=== PATIENT | female | born 1940 | race Caucasian/White ===

== ENCOUNTER → 2016-10-08 | Outpatient (CLI) | payer OTHER ==
[2016-10-08 08:22] LABS: Urine Bilirubin Negative (Negative); Urine Blood TRACE /uL (Negative); Urine Color Yellow (Yellow); Urine Glucose Normal (Normal); Urine Ketone Negative (Negative); Urine Nitrite Negative (Negative); Urine RBC 1 /hpf (0 - 4); Urine Squamous Epithelial Cell FEW /hpf (<5); Urine Urobilinogen Normal (Negative); Urine pH 6.5 (5.0-8.0)
[2016-10-08 08:43] LABS: Basophils # (auto) 0 uL; Basophils % (auto) 0.4 % (0.0-2.0); Eosinophils # (auto) 0.2 uL; Eosinophils % (auto) 3.4 % (0.0-7.0); Hematocrit 44.8 % (36.0-46.0); Hemoglobin 15.4 g/dL (12.2-16.2); Lymphocytes # (auto) 1.4 uL; Lymphocytes % (auto) 28.2 % (10.0-50.0); Mean Corpuscular Hemoglobin 31.5 pg (28.0-32.0); Mean Corpuscular Hgb Conc. 34.3 g/dL (32.0-36.0); Mean Platelet Volume 10.2 fL (7.4-10.4); Monocytes # (auto) 0.6 uL; Monocytes % (auto) 12.6 % (0.0-12.0); Neutrophils # (auto) 2.7 uL; Neutrophils % (auto) 55.4 % (37.0-80.0); Platelet Count (auto) 190 10^3/uL (140-450); Red Cell Distribution Width 13.9 % (11.6-16.0)
[2016-10-08 14:03] LABS: BUN/Creatinine Ratio 15.3; Bilirubin, Total 1.5 mg/dL (0.2-1.0); Calcium 8.7 mg/dL (8.5-10.1); Total Protein 7.2 g/dL (6.4-8.2); Uric Acid 3.1 mg/dL (2.6-6.0)
== END | disposition home or self-care (01) ==
LOC: LAB 06:41
PROVIDERS: ATTEND Family Medicine
DX: E11.8 Type 2 diabetes mellitus with unspecified complications (principal); E78.5 Hyperlipidemia, unspecified; M19.90 Unspecified osteoarthritis, unspecified site
CPT/HCPCS: 36415; 80053; 80061; 81001; 84550; 85025

== ENCOUNTER → 2017-02-08 | Outpatient (CLI) | payer OTHER ==
[2017-02-08 08:33] LABS: Albumin 3.5 g/dL (3.4-5.0); Bilirubin, Direct 0.2 mg/dL (0-0.2); Bilirubin, Total 1.2 mg/dL (0.2-1.0); Total Protein 6.7 g/dL (6.4-8.2)
[2017-02-08 09:11] LABS: Hepatitis B Surface Antibody Negative
== END | disposition home or self-care (01) ==
LOC: LAB 06:47
PROVIDERS: ATTEND Family Medicine
DX: E78.5 Hyperlipidemia, unspecified (principal); M19.049 Primary osteoarthritis, unspecified hand
CPT/HCPCS: 36415; 80076; 86704; 86706; 86708; 86803; 87340

== ENCOUNTER → 2018-03-10 | Outpatient (CLI) | payer OTHER, MEDICARE ==
[2018-03-10 07:45] LABS: Urine Blood Negative /uL (Negative); Urine Specific Gravity 1.013 (1.001-1.035)
[2018-03-10 07:46] LABS: Basophils # (auto) 0 uL; Basophils % (auto) 0.8 % (0.0-2.0); Eosinophils # (auto) 0.1 uL; Eosinophils % (auto) 2.8 % (0.0-7.0); Hematocrit 43.7 % (36.0-46.0); Hemoglobin 14.9 g/dL (12.2-16.2); Lymphocytes % (auto) 25.8 % (10.0-50.0); Mean Corpuscular Hemoglobin 31.8 pg (28.0-32.0); Mean Corpuscular Hgb Conc. 34.2 g/dL (32.0-36.0); Mean Corpuscular Volume 93.1 fL (80.0-100.0); Monocytes # (auto) 0.5 uL; Monocytes % (auto) 13.4 % (0.0-12.0); Neutrophils # (auto) 2.2 uL; Neutrophils % (auto) 57.2 % (37.0-80.0); Platelet Count (auto) 157 10^3/uL (140-450); Red Cell Distribution Width 14.1 % (11.8-14.3); White Blood Cell 3.9 10^3/uL (4.4-10.8)
[2018-03-10 08:20] LABS: Albumin 3.6 g/dL (3.4-5.0); BUN/Creatinine Ratio 20.5; Bilirubin, Total 1.5 mg/dL (0.2-1.0); Calcium 8.3 mg/dL (8.5-10.1); Potassium 3.7 mmol/L (3.5-5.1); Total Protein 6.8 g/dL (6.4-8.2)
[2018-03-10 08:41] LABS: INR 1.12 (0.9-1.15); Partial Thromboplastin Time 36.2 sec (23.78-33.04); Prothrombin Time 11.9 sec (9.27-12.13)
== END | disposition home or self-care (01) ==
LOC: LAB 06:45
PROVIDERS: ATTEND Specialist
DX: Z01.812 Encounter for preprocedural laboratory examination (principal); D68.311 Acquired hemophilia; H25.11 Age-related nuclear cataract, right eye; Z79.01 Long term (current) use of anticoagulants
CPT/HCPCS: 36415; 80053; 81003; 85025; 85610; 85730

== ENCOUNTER → 2018-04-26 | Outpatient (CLI) | payer OTHER, MEDICARE ==
[2018-04-26 12:41] LABS: Basophils # (auto) 0 uL; Basophils % (auto) 0.6 % (0.0-2.0); Eosinophils # (auto) 0.1 uL; Eosinophils % (auto) 2.1 % (0.0-7.0); Hematocrit 46.3 % (36.0-46.0); Hemoglobin 15.6 g/dL (12.2-16.2); Lymphocytes # (auto) 1.1 uL; Lymphocytes % (auto) 28.2 % (10.0-50.0); Mean Corpuscular Hemoglobin 31.5 pg (28.0-32.0); Mean Corpuscular Hgb Conc. 33.7 g/dL (32.0-36.0); Mean Corpuscular Volume 93.6 fL (80.0-100.0); Monocytes # (auto) 0.6 uL; Monocytes % (auto) 13.9 % (0.0-12.0); Neutrophils # (auto) 2.2 uL; Neutrophils % (auto) 55.2 % (37.0-80.0); Nucleated Red Blood Cells % 0.1 %; Platelet Count (auto) 170 10^3/uL (140-450); Red Blood Cells 4.95 10^6/uL (4.0-5.20); Red Cell Distribution Width 13.7 % (11.8-14.3)
[2018-04-26 12:42] LABS: Urine Blood Negative /uL (Negative); Urine Specific Gravity 1.021 (1.001-1.035)
[2018-04-26 12:57] LABS: INR 1.1 (0.9-1.15); Partial Thromboplastin Time 35.6 sec (23.78-33.04); Prothrombin Time 11.7 sec (9.27-12.13)
[2018-04-26 13:18] LABS: Albumin 3.8 g/dL (3.4-5.0); BUN/Creatinine Ratio 15.1; Bilirubin, Total 2.2 mg/dL (0.2-1.0); Potassium 3.8 mmol/L (3.5-5.1); Total Protein 7.4 g/dL (6.4-8.2)
== END | disposition home or self-care (01) ==
LOC: LAB 11:49
DX: Z01.812 Encounter for preprocedural laboratory examination (principal); H25.12 Age-related nuclear cataract, left eye; D68.9 Coagulation defect, unspecified; Z79.01 Long term (current) use of anticoagulants
CPT/HCPCS: 36415; 80053; 81003; 85025; 85610; 85730

== ENCOUNTER → 2018-10-03 | Outpatient (CLI) | payer OTHER, MEDICARE ==
[2018-10-03 09:50] LABS: Basophils # (auto) 0 uL; Basophils % (auto) 0.7 % (0.0-2.0); Eosinophils # (auto) 0.2 uL; Eosinophils % (auto) 3.6 % (0.0-7.0); Hematocrit 46.6 % (36.0-46.0); Hemoglobin 15.4 g/dL (12.2-16.2); Lymphocytes # (auto) 1.4 uL; Lymphocytes % (auto) 33.1 % (10.0-50.0); Mean Corpuscular Hgb Conc. 33.1 g/dL (32.0-36.0); Mean Corpuscular Volume 93.6 fL (80.0-100.0); Monocytes # (auto) 0.5 uL; Monocytes % (auto) 12.3 % (0.0-12.0); Neutrophils # (auto) 2.2 uL; Neutrophils % (auto) 50.3 % (37.0-80.0); Nucleated Red Blood Cells % 0.1 %; Platelet Count (auto) 166 10^3/uL (140-450); Red Blood Cells 4.98 10^6/uL (4.0-5.20); Red Cell Distribution Width 13.7 % (11.8-14.3); White Blood Cell 4.4 10^3/uL (4.4-10.8)
[2018-10-03 10:02] LABS: Urine Bacteria FEW /hpf (None Seen); Urine Blood Negative /uL (Negative); Urine Specific Gravity 1.011 (1.001-1.035); Urine WBC 3 /hpf (0 - 5)
[2018-10-03 11:18] LABS: Potassium 4.3 mmol/L (3.5-5.1)
[2018-10-03 11:49] LABS: Albumin 3.8 g/dL (3.4-5.0); BUN/Creatinine Ratio 21.8; Bilirubin, Total 0.9 mg/dL (0.2-1.0); Calcium 9.4 mg/dL (8.5-10.1); Total Protein 7.1 g/dL (6.4-8.2)
== END | disposition home or self-care (01) ==
LOC: LAB 08:10
PROVIDERS: ATTEND Nurse Practitioner
DX: E78.5 Hyperlipidemia, unspecified (principal)
CPT/HCPCS: 36415; 80053; 80061; 81001; 82306; 84443; 85025

== ENCOUNTER → 2018-11-02 | Outpatient (CLI) | payer MEDICARE, OTHER | END | disposition home or self-care (01) | LOC: XYW 08:50 | PROVIDERS: ATTEND Internal Medicine | DX: I08.1 Rheumatic disorders of both mitral and tricuspid valves (principal); I48.1 Persistent atrial fibrillation; E78.5 Hyperlipidemia, unspecified | CPT/HCPCS: 93306 ==

== ENCOUNTER → 2019-02-03 | Outpatient (CLI) | payer OTHER ==
[2019-02-03 09:50] LABS: Calcium 8.9 mg/dL (8.5-10.1); Potassium 3.9 mmol/L (3.5-5.1)
[2019-02-03 11:56] LABS: Free T4 (Free Thyroxine) 1.35 ng/dL (0.89-1.76)
[2019-02-03 11:57] LABS: Folate (Folic Acid) 18.17 ng/mL (5.38-24)
== END | disposition home or self-care (01) ==
LOC: LAB 07:50
PROVIDERS: ATTEND Internal Medicine
DX: I10 Essential (primary) hypertension (principal)
CPT/HCPCS: 36415; 80048; 82607; 82746; 84439; 84443

== ENCOUNTER → 2019-04-18 | Outpatient (CLI) | payer OTHER ==
[2019-04-18 11:15] LABS: Basophils # (auto) 0 uL; Basophils % (auto) 0.8 % (0.0-2.0); Eosinophils # (auto) 0.1 uL; Eosinophils % (auto) 1.9 % (0.0-7.0); Hematocrit 47.2 % (36.0-46.0); Hemoglobin 15.9 g/dL (12.2-16.2); Lymphocytes # (auto) 1.1 uL; Lymphocytes % (auto) 28.5 % (10.0-50.0); Mean Corpuscular Hemoglobin 31.5 pg (28.0-32.0); Mean Corpuscular Hgb Conc. 33.7 g/dL (32.0-36.0); Mean Corpuscular Volume 93.3 fL (80.0-100.0); Monocytes # (auto) 0.5 uL; Monocytes % (auto) 12.3 % (0.0-12.0); Neutrophils # (auto) 2.2 uL; Neutrophils % (auto) 56.5 % (37.0-80.0); Nucleated Red Blood Cells % 0.5 %; Platelet Count (auto) 161 10^3/uL (140-450); Red Blood Cells 5.06 10^6/uL (4.0-5.20); White Blood Cell 3.9 10^3/uL (4.4-10.8)
[2019-04-18 11:22] LABS: Urine Bacteria FEW /hpf (None Seen); Urine Blood TRACE /uL (Negative); Urine Specific Gravity 1.016 (1.001-1.035); Urine WBC 56 /hpf (0 - 5)
[2019-04-18 11:47] LABS: Calcium 9.1 mg/dL (8.5-10.1); Potassium 3.9 mmol/L (3.5-5.1)
[2019-04-18 11:51] LABS: BUN/Creatinine Ratio 23.8; Bilirubin, Total 1.7 mg/dL (0.2-1.0); Total Protein 7.4 g/dL (6.4-8.2)
== END | disposition home or self-care (01) ==
LOC: LAB 10:42
PROVIDERS: ATTEND Nurse Practitioner
DX: E78.5 Hyperlipidemia, unspecified (principal); I10 Essential (primary) hypertension
CPT/HCPCS: 36415; 80053; 80061; 81001; 85025

== ENCOUNTER → 2020-08-09 | Outpatient (CLI) | payer OTHER | END | disposition home or self-care (01) | LOC: LAB 08:34 | PROVIDERS: ATTEND Nurse Practitioner Family | DX: Z20.828 Contact with and (suspected) exposure to other viral communicable diseases (principal) | CPT/HCPCS: C9803; U0003 ==

== ENCOUNTER → 2020-11-22 | Outpatient (CLI) | payer OTHER ==
[2020-11-22 08:37] LABS: Urine Bacteria MANY /hpf (None Seen); Urine Blood Negative /uL (Negative); Urine WBC 63 /hpf (0 - 5)
[2020-11-22 08:48] LABS: Basophils # (auto) 0 10 ^3/uL (0-0.2); Basophils % (auto) 0.6 % (0.0-2.0); Eosinophils # (auto) 0.1 10 ^3/uL (0-0.8); Hematocrit 46.6 % (36.0-46.0); Lymphocytes # (auto) 1.2 10 ^3/uL (0.4-5.4); Lymphocytes % (auto) 28.6 % (10.0-50.0); Mean Corpuscular Hemoglobin 32.2 pg (28.0-32.0); Mean Corpuscular Hgb Conc. 34.3 g/dL (32.0-36.0); Monocytes # (auto) 0.4 10 ^3/uL (0-1.3); Monocytes % (auto) 10.3 % (0.0-12.0); Neutrophils # (auto) 2.5 10 ^3/uL (1.6-8.6); Neutrophils % (auto) 58.5 % (37.0-80.0); Nucleated Red Blood Cells % 0.3 %; Platelet Count (auto) 181 10^3/uL (140-450); Red Blood Cells 4.96 10^6/uL (4.0-5.20); Red Cell Distribution Width 14.1 % (11.8-14.3); White Blood Cell 4.2 10^3/uL (4.4-10.8)
[2020-11-22 09:02] LABS: Albumin 3.9 g/dL (3.4-5.0); Calcium 9.1 mg/dL (8.5-10.1)
[2020-11-22 09:07] LABS: BUN/Creatinine Ratio 15.4; Bilirubin, Total 1.6 mg/dL (0.2-1.0)
== END | disposition home or self-care (01) ==
LOC: LAB 07:34
PROVIDERS: ATTEND Nurse Practitioner
DX: I10 Essential (primary) hypertension (principal); E78.5 Hyperlipidemia, unspecified
CPT/HCPCS: 36415; 80053; 80061; 81001; 84443; 85025; 86431

== ENCOUNTER → 2021-02-05 | Outpatient (CLI) | payer OTHER ==
[2021-02-05 08:20] LABS: Cholesterol 198 mg/dL (< 200)
[2021-02-05 08:23] LABS: HDL Cholesterol 52 mg/dL (40-59); LDL Cholesterol 130 mg/dL (< 100); Triglycerides 117 mg/dL (< 150)
== END | disposition home or self-care (01) ==
LOC: LAB 07:28
PROVIDERS: ATTEND Internal Medicine
DX: E78.5 Hyperlipidemia, unspecified (principal)
CPT/HCPCS: 36415; 80061

== ENCOUNTER → 2021-02-12 | Outpatient (CLI) | payer OTHER | END | disposition home or self-care (01) | LOC: XYW 02-11 11:37 | PROVIDERS: ATTEND Internal Medicine | DX: I08.3 Combined rheumatic disorders of mitral, aortic and tricuspid valves (principal); I11.9 Hypertensive heart disease without heart failure; I48.91 Unspecified atrial fibrillation | CPT/HCPCS: 93306 ==

== ENCOUNTER → 2021-02-25 | Outpatient (CLI) | payer OTHER ==
[~2021-02-25] VITALS: Ht 162.6 cm; Wt 50.3 kg
[~2021-02-25] MED LIST: ADENOSINE 42 MG in GIVE UN-DILUTED 0 ML IV ONE
[2021-02-25 09:46] VITALS: BP 196/81
== END | disposition home or self-care (01) ==
LOC: XY 08:17
PROVIDERS: ATTEND Internal Medicine
DX: I25.10 Atherosclerotic heart disease of native coronary artery without angina pectoris (principal)
CPT/HCPCS: 78452; 93017; A9500; J0153

== ENCOUNTER → 2021-03-05 | Outpatient (CLI) | payer OTHER ==
[2021-03-05 07:11] LABS: Basophils # (auto) 0 10 ^3/uL (0-0.2); Eosinophils # (auto) 0.1 10 ^3/uL (0-0.8); Eosinophils % (auto) 1.8 % (0.0-7.0); Hematocrit 42.7 % (36.0-46.0); Hemoglobin 14.8 g/dL (12.2-16.2); Lymphocytes # (auto) 1.1 10 ^3/uL (0.4-5.4); Lymphocytes % (auto) 26.9 % (10.0-50.0); Mean Corpuscular Hemoglobin 32.1 pg (28.0-32.0); Mean Corpuscular Hgb Conc. 34.7 g/dL (32.0-36.0); Mean Corpuscular Volume 92.5 fL (80.0-100.0); Monocytes # (auto) 0.5 10 ^3/uL (0-1.3); Monocytes % (auto) 12.5 % (0.0-12.0); Neutrophils # (auto) 2.4 10 ^3/uL (1.6-8.6); Neutrophils % (auto) 57.8 % (37.0-80.0); Red Blood Cells 4.62 10^6/uL (4.0-5.20); Red Cell Distribution Width 13.2 % (11.8-14.3); White Blood Cell 4.2 10^3/uL (4.4-10.8)
[2021-03-05 07:17] LABS: Urine Bacteria MOD /hpf (None Seen); Urine Blood Negative /uL (Negative); Urine Specific Gravity 1.015 (1.001-1.035); Urine WBC 18 /hpf (0 - 5)
[2021-03-05 07:35] LABS: Albumin 3.7 g/dL (3.4-5.0); BUN/Creatinine Ratio 17.5; Calcium 9.1 mg/dL (8.5-10.1); Potassium 4.9 mmol/L (3.5-5.1)
[2021-03-05 07:39] LABS: Bilirubin, Total 1.2 mg/dL (0.2-1.0); Total Protein 7.1 g/dL (6.4-8.2)
== END | disposition home or self-care (01) ==
LOC: LAB 06:39
PROVIDERS: ATTEND Nurse Practitioner
DX: I10 Essential (primary) hypertension (principal); E03.9 Hypothyroidism, unspecified; E78.5 Hyperlipidemia, unspecified
CPT/HCPCS: 36415; 80053; 80061; 81001; 84443; 85025

== ENCOUNTER 2021-03-21 14:54 | Emergency (ER) | payer OTHER ==
[~2021-03-21] VITALS: Ht 157.5 cm; Wt 50.3 kg
[2021-03-21 16:15] LABS: Basophils # (auto) 0.1 10 ^3/uL (0-0.2); Basophils % (auto) 1.3 % (0.0-2.0); Eosinophils # (auto) 0.1 10 ^3/uL (0-0.8); Eosinophils % (auto) 1.1 % (0.0-7.0); Hemoglobin 14.9 g/dL (12.2-16.2); Lymphocytes # (auto) 1.1 10 ^3/uL (0.4-5.4); Lymphocytes % (auto) 21.8 % (10.0-50.0); Mean Corpuscular Hemoglobin 31.5 pg (28.0-32.0); Mean Corpuscular Hgb Conc. 34.6 g/dL (32.0-36.0); Mean Corpuscular Volume 91.2 fL (80.0-100.0); Monocytes # (auto) 0.6 10 ^3/uL (0-1.3); Monocytes % (auto) 12.5 % (0.0-12.0); Neutrophils # (auto) 3.3 10 ^3/uL (1.6-8.6); Neutrophils % (auto) 63.3 % (37.0-80.0); Red Blood Cells 4.72 10^6/uL (4.0-5.20); Red Cell Distribution Width 13.3 % (11.8-14.3); White Blood Cell 5.2 10^3/uL (4.4-10.8)
[2021-03-21 16:31] LABS: Albumin 3.7 g/dL (3.4-5.0); Anion Gap 6 (5-15); Blood Urea Nitrogen 12 mg/dL (7-18); Carbon Dioxide 29 mmol/L (21-32); Chloride 99 mmol/L (98-107); Glucose 88 mg/dL (74-106); Magnesium 2.3 mg/dL (1.6-2.6); Potassium 3.7 mmol/L (3.5-5.1); Sodium 134 mmol/L (136-145)
[2021-03-21 16:38] LABS: Alanine Aminotransferase 34 U/L (13-56); Alkaline Phosphatase 69 U/L (45-117); Aspartate Aminotransferase 28 U/L (15-37); BUN/Creatinine Ratio 17.6; Bilirubin, Total 1.9 mg/dL (0.2-1.0); GFR African American 107 mL/min; GFR Non-African American 88 mL/min
[2021-03-21 17:39] VITALS: BP 150/56
== END 2021-03-21 17:40 | disposition home or self-care (01) ==
LOC: ER 14:54
DX: I16.0 Hypertensive urgency (principal); R51.9 Headache, unspecified; I48.91 Unspecified atrial fibrillation; I25.10 Atherosclerotic heart disease of native coronary artery without angina pectoris; E78.5 Hyperlipidemia, unspecified; I10 Essential (primary) hypertension; Z95.1 Presence of aortocoronary bypass graft; Z90.710 Acquired absence of both cervix and uterus; Z98.890 Other specified postprocedural states
CPT/HCPCS: 36415; 70450; 71046; 80053; 83735; 84484; 85025; 93005

== ENCOUNTER → 2021-10-27 | Outpatient (CLI) | payer OTHER ==
[2021-10-27 11:12] LABS: Basophils # (auto) 0 10 ^3/uL (0-0.2); Basophils % (auto) 1.1 % (0.0-2.0); Eosinophils # (auto) 0.1 10 ^3/uL (0-0.8); Eosinophils % (auto) 2.5 % (0.0-7.0); Hematocrit 41.3 % (36.0-46.0); Hemoglobin 14.2 g/dL (12.2-16.2); Lymphocytes # (auto) 1.2 10 ^3/uL (0.4-5.4); Lymphocytes % (auto) 26.4 % (10.0-50.0); Mean Corpuscular Hemoglobin 31.6 pg (28.0-32.0); Mean Corpuscular Hgb Conc. 34.3 g/dL (32.0-36.0); Mean Corpuscular Volume 91.9 fL (80.0-100.0); Monocytes # (auto) 0.4 10 ^3/uL (0-1.3); Monocytes % (auto) 9.5 % (0.0-12.0); Neutrophils # (auto) 2.7 10 ^3/uL (1.6-8.6); Neutrophils % (auto) 60.5 % (37.0-80.0); Nucleated Red Blood Cells % 0.2 %; Red Blood Cells 4.49 10^6/uL (4.0-5.20); Red Cell Distribution Width 14.2 % (11.8-14.3); White Blood Cell 4.5 10^3/uL (4.4-10.8)
[2021-10-27 12:03] LABS: Albumin 3.4 g/dL (3.4-5.0); BUN/Creatinine Ratio 17.4; Calcium 8.8 mg/dL (8.5-10.1); Potassium 4.1 mmol/L (3.5-5.1)
[2021-10-27 12:07] LABS: Urine Bacteria FEW /hpf (None Seen); Urine Blood Negative /uL (Negative); Urine Specific Gravity 1.017 (1.001-1.035); Urine WBC 22 /hpf (0 - 5)
[2021-10-27 12:08] LABS: Bilirubin, Total 1.5 mg/dL (0.2-1.0); Total Protein 6.9 g/dL (6.4-8.2)
== END | disposition home or self-care (01) ==
LOC: LAB 10:55
PROVIDERS: ATTEND Nurse Practitioner
DX: I10 Essential (primary) hypertension (principal); E03.9 Hypothyroidism, unspecified; E78.5 Hyperlipidemia, unspecified
CPT/HCPCS: 36415; 80053; 80061; 81001; 84443; 85025

== ENCOUNTER → 2022-07-03 | Outpatient (CLI) | payer OTHER ==
[2022-07-03 07:53] LABS: Basophils # (auto) 0 10 ^3/uL (0-0.2); Basophils % (auto) 0.9 % (0.0-2.0); Eosinophils # (auto) 0.1 10 ^3/uL (0-0.8); Eosinophils % (auto) 2.5 % (0.0-7.0); Hematocrit 45.9 % (36.0-46.0); Hemoglobin 15.1 g/dL (12.2-16.2); Lymphocytes # (auto) 1.5 10 ^3/uL (0.4-5.4); Mean Corpuscular Hemoglobin 30.5 pg (28.0-32.0); Mean Corpuscular Hgb Conc. 32.9 g/dL (32.0-36.0); Mean Corpuscular Volume 92.4 fL (80.0-100.0); Monocytes # (auto) 0.6 10 ^3/uL (0-1.3); Monocytes % (auto) 12.5 % (0.0-12.0); Neutrophils # (auto) 2.5 10 ^3/uL (1.6-8.6); Neutrophils % (auto) 53.1 % (37.0-80.0); Red Blood Cells 4.97 10^6/uL (4.0-5.20); Red Cell Distribution Width 13.9 % (11.8-14.3); White Blood Cell 4.7 10^3/uL (4.4-10.8)
[2022-07-03 08:32] LABS: Albumin 3.5 g/dL (3.4-5.0); Calcium 9.1 mg/dL (8.5-10.1); Potassium 4.3 mmol/L (3.5-5.1)
[2022-07-03 08:40] LABS: Free T3 2.93 pg/mL (2.3-4.2); Free T4 (Free Thyroxine) 1.3 ng/dL (0.89-1.76)
== END | disposition home or self-care (01) ==
LOC: LAB 07:40
PROVIDERS: ATTEND Internal Medicine
DX: I10 Essential (primary) hypertension (principal); E03.9 Hypothyroidism, unspecified; E78.5 Hyperlipidemia, unspecified
CPT/HCPCS: 36415; 80053; 80061; 84439; 84443; 84481; 85025

== ENCOUNTER → 2022-07-07 | Outpatient (CLI) | payer OTHER | END | disposition home or self-care (01) | LOC: XYW 08:25 | PROVIDERS: ATTEND Internal Medicine | DX: I08.1 Rheumatic disorders of both mitral and tricuspid valves (principal); I48.91 Unspecified atrial fibrillation | CPT/HCPCS: 93306 ==

== ENCOUNTER → 2022-08-14 | Outpatient (CLI) | payer OTHER | END | disposition home or self-care (01) | LOC: LAB 10:46 | PROVIDERS: ATTEND Family Medicine | DX: B07.8 Other viral warts (principal) | CPT/HCPCS: 88302 ==

== ENCOUNTER → 2023-02-10 | Outpatient (CLI) | payer OTHER ==
[2023-02-10 07:37] LABS: Albumin 3.6 g/dL (3.4-5.0); Calcium 8.5 mg/dL (8.5-10.1); Potassium 3.9 mmol/L (3.5-5.1)
[2023-02-10 07:39] LABS: Basophils # (auto) 0 10 ^3/uL (0-0.2); Eosinophils # (auto) 0.2 10 ^3/uL (0-0.8); Eosinophils % (auto) 4.1 % (0.0-7.0); Hematocrit 45.5 % (36.0-46.0); Hemoglobin 15.3 g/dL (12.2-16.2); Lymphocytes # (auto) 1.4 10 ^3/uL (0.4-5.4); Mean Corpuscular Hemoglobin 30.8 pg (28.0-32.0); Mean Corpuscular Hgb Conc. 33.5 g/dL (32.0-36.0); Mean Corpuscular Volume 91.9 fL (80.0-100.0); Monocytes # (auto) 0.6 10 ^3/uL (0-1.3); Monocytes % (auto) 12.3 % (0.0-12.0); Neutrophils # (auto) 2.3 10 ^3/uL (1.6-8.6); Neutrophils % (auto) 51.6 % (37.0-80.0); Red Blood Cells 4.95 10^6/uL (4.0-5.20); Red Cell Distribution Width 13.8 % (11.8-14.3); White Blood Cell 4.5 10^3/uL (4.4-10.8)
[2023-02-10 07:44] LABS: BUN/Creatinine Ratio 14.6 (10.0-20.0); Bilirubin, Total 0.8 mg/dL (0.2-1.0); Total Protein 6.8 g/dL (6.4-8.2)
[2023-02-10 09:16] LABS: Urine Bacteria FEW /hpf (None Seen); Urine Blood Negative /uL (Negative); Urine Specific Gravity 1.005 (1.001-1.035); Urine WBC 31 /hpf (0 - 5)
== END | disposition home or self-care (01) ==
LOC: LAB 06:24
PROVIDERS: ATTEND Nurse Practitioner
DX: I10 Essential (primary) hypertension (principal); E78.5 Hyperlipidemia, unspecified
CPT/HCPCS: 36415; 80053; 80061; 81001; 84443; 85025

== ENCOUNTER 2024-04-25 14:39 | Inpatient (IN) | payer OTHER ==
[~2024-04-25] VITALS: Ht 154.9 cm; Wt 58.2 kg
[2024-04-25 15:08] LABS: Basophils # (auto) 0 10 ^3/uL (0-0.2); Basophils % (auto) 0.6 % (0.0-2.0); Eosinophils # (auto) 0.1 10 ^3/uL (0-0.8); Eosinophils % (auto) 1.6 % (0.0-7.0); Hematocrit 49.1 % (36.0-46.0); Hemoglobin 16.9 g/dL (12.2-16.2); Lymphocytes # (auto) 1.8 10 ^3/uL (0.4-5.4); Lymphocytes % (auto) 30.9 % (10.0-50.0); Mean Corpuscular Hemoglobin 31.4 pg (28.0-32.0); Mean Corpuscular Hgb Conc. 34.4 g/dL (32.0-36.0); Mean Corpuscular Volume 91.5 fL (80.0-100.0); Monocytes # (auto) 0.6 10 ^3/uL (0-1.3); Monocytes % (auto) 10.9 % (0.0-12.0); Neutrophils # (auto) 3.3 10 ^3/uL (1.6-8.6); Nucleated Red Blood Cells % 0.1 %; Platelet Count (auto) 191 10^3/uL (140-450); Red Blood Cells 5.36 10^6/uL (4.0-5.20); Red Cell Distribution Width 14.2 % (11.8-14.3); White Blood Cell 5.8 10^3/uL (4.4-10.8)
[2024-04-25 15:25] LABS: Alanine Aminotransferase 13 U/L (7-40); Albumin 4.7 g/dL (3.2-4.8); Alkaline Phosphatase 93 U/L (46-116); Anion Gap 10 (5-15); Aspartate Aminotransferase 17 U/L (13-40); BUN/Creatinine Ratio 14.8 (10.0-20.0); Blood Urea Nitrogen 12 mg/dL (9-23); Calcium 9.9 mg/dL (8.7-10.4); Carbon Dioxide 24 mmol/L (20-30); Chloride 107 mmol/L (98-107); Glucose 103 mg/dL (74-106); Potassium 3.9 mmol/L (3.5-5.1); Sodium 141 mmol/L (136-145)
[2024-04-25 15:26] LABS: Bilirubin, Total 1.8 mg/dL (0.2-1.0); Total Protein 7.4 g/dL (5.7-8.2)
[2024-04-25] MEDS: IOHEXOL 350 MG/ML 100ML IJ ONE ×2 (15:31→19:58)
[2024-04-25 15:34] LABS: INR 1.01 (0.9-1.15); Partial Thromboplastin Time 30.1 SEC (24.5-34.5); Prothrombin Time 10.7 sec (9.3-11.8)
[2024-04-25 19:14] LABS: Urine Bacteria None Seen /hpf (None Seen)
[2024-04-25 19:34] LABS: Urine Blood Negative /uL (Negative); Urine Clarity Clear (Clear); Urine Color Light-Yellow (Yellow); Urine Protein, UAD Negative (Negative); Urine Urobilinogen Normal (Negative); Urine WBC 11 /hpf (0 - 5); Urine pH 6.5 (5.0-9.0)
[2024-04-25 19:35] LABS: Urine Specific Gravity > 1.050 (1.001-1.035)
[2024-04-25 19:45] VITALS: PULSE 18; RESP 18; O2SAT 93
[2024-04-25] MEDS: LABETALOL HCL 20 MG/4 ML VL IV ONE ×2 (19:59→22:14)
[2024-04-25] MEDS ORDERED: LORazepam 2MG/ML-1ML VIAL IV PRN (22:45)
[2024-04-25] MEDS ORDERED: LABETALOL HCL 20 MG/4 ML VL IV PRN (22:45)
[2024-04-25 23:09] LABS: Free T4 (Free Thyroxine) 1.36 ng/dL (0.89-1.76)
[2024-04-25] MEDS: cefTRIAXone 1GM/50ML D5W 50 ML IV ONE (23:52)
[2024-04-26] MEDS ORDERED: hydrALAZINE HCL 20 MG/ML VL IV PRN ×2 (02:30→15:45)
[2024-04-26] MEDS: ATORVASTATIN 20 MG TAB PO SCH (05:30)
[2024-04-26 05:39] LABS: Triglycerides 148 mg/dL (< 150)
[2024-04-26 05:40] LABS: LDL Cholesterol 217 mg/dL (< 100)
[2024-04-26 05:41] LABS: Cholesterol 281 mg/dL (< 200); HDL Cholesterol 50 mg/dL (40-59)
[2024-04-26 06:41] LABS: Alanine Aminotransferase 12 U/L (7-40); Albumin 4.6 g/dL (3.2-4.8); Alkaline Phosphatase 89 U/L (46-116); Anion Gap 11 (5-15); Aspartate Aminotransferase 15 U/L (13-40); BUN/Creatinine Ratio 12.3 (10.0-20.0); Bilirubin, Total 1.5 mg/dL (0.2-1.0); Blood Urea Nitrogen 10 mg/dL (9-23); Calcium 9.8 mg/dL (8.7-10.4); Carbon Dioxide 23 mmol/L (20-30); Chloride 106 mmol/L (98-107); Glucose 121 mg/dL (74-106); Potassium 3.4 mmol/L (3.5-5.1); Sodium 140 mmol/L (136-145); Total Protein 7.2 g/dL (5.7-8.2)
[2024-04-26 06:42] LABS: Basophils # (auto) 0 10 ^3/uL (0-0.2); Basophils % (auto) 0.6 % (0.0-2.0); Eosinophils # (auto) 0 10 ^3/uL (0-0.8); Eosinophils % (auto) 0.8 % (0.0-7.0); Hematocrit 46.1 % (36.0-46.0); Lymphocytes # (auto) 1.3 10 ^3/uL (0.4-5.4); Lymphocytes % (auto) 20.9 % (10.0-50.0); Mean Corpuscular Hemoglobin 31.4 pg (28.0-32.0); Mean Corpuscular Hgb Conc. 34.8 g/dL (32.0-36.0); Mean Corpuscular Volume 90.3 fL (80.0-100.0); Monocytes # (auto) 0.6 10 ^3/uL (0-1.3); Monocytes % (auto) 9.3 % (0.0-12.0); Neutrophils # (auto) 4.2 10 ^3/uL (1.6-8.6); Neutrophils % (auto) 68.4 % (37.0-80.0); Nucleated Red Blood Cells % 0.2 %; Platelet Count (auto) 188 10^3/uL (140-450); Red Blood Cells 5.11 10^6/uL (4.0-5.20); Red Cell Distribution Width 13.9 % (11.8-14.3); White Blood Cell 6.2 10^3/uL (4.4-10.8)
[2024-04-26 08:05] VITALS: PULSE 18; RESP 18; O2SAT 98
[2024-04-26] MEDS: ENOXAPARIN SOD 100 MG/1 ML SYRINGE SC SCH (09:35)
[2024-04-26] MEDS: CYANOCOBALAMIN (B-12) 1000 MCG/1 ML VIAL SUBCUT ONE (09:39)
[2024-04-26] MEDS: POTASSIUM CHL 20MEQ/100ML 100 ML IV ONE (09:39)
[2024-04-26] MEDS ORDERED: ATORVASTATIN 20 MG TAB PO SCH (10:00)
[2024-04-26] MEDS: hydrALAZINE HCL 20 MG/ML VL IV PRN (10:57)
[2024-04-26] MEDS ORDERED: LEVO50TA3 PO (17:07)
[2024-04-26] MEDS ORDERED: FENO145T27 PO (17:07)
[2024-04-26] MEDS ORDERED: APIX5TAB PO (17:07)
[2024-04-26] MEDS ORDERED: CITA10TA6 PO (17:07)
[2024-04-26] MEDS ORDERED: METO-158 PO (17:07)
[2024-04-26] MEDS ORDERED: GABA300T4 PO (17:07)
[2024-04-26 19:15] VITALS: PULSE 90; RESP 20; O2SAT 95
[2024-04-26 21:00] VITALS: BP 165/75; PULSE 81; RESP 16; TEMP 98.1; O2SAT 99
[2024-04-26 22:05] VITALS: PULSE 99; RESP 16; O2SAT 99
[2024-04-26] MEDS: APIXABAN 5 MG TAB PO SCH (23:24)
[2024-04-26] MEDS: cefTRIAXone 1GM/50ML D5W 50 ML IV SCH (23:25)
[2024-04-27] VITALS (9 sets, daily range): BP systolic 120–160; BP diastolic 63–80; PULSE 56–90; RESP 16–20; TEMP 97.9–98.9; O2SAT 90–94
[2024-04-27 07:05] LABS: Basophils # (auto) 0 10 ^3/uL (0-0.2); Basophils % (auto) 0.7 % (0.0-2.0); Eosinophils # (auto) 0.2 10 ^3/uL (0-0.8); Eosinophils % (auto) 3.3 % (0.0-7.0); Hematocrit 46.1 % (36.0-46.0); Hemoglobin 16.1 g/dL (12.2-16.2); Lymphocytes # (auto) 1.3 10 ^3/uL (0.4-5.4); Lymphocytes % (auto) 24.5 % (10.0-50.0); Mean Corpuscular Hemoglobin 31.7 pg (28.0-32.0); Mean Corpuscular Volume 90.7 fL (80.0-100.0); Monocytes # (auto) 0.7 10 ^3/uL (0-1.3); Monocytes % (auto) 13.1 % (0.0-12.0); Neutrophils # (auto) 3.1 10 ^3/uL (1.6-8.6); Neutrophils % (auto) 58.4 % (37.0-80.0); Nucleated Red Blood Cells % 0.1 %; Platelet Count (auto) 195 10^3/uL (140-450); Red Blood Cells 5.08 10^6/uL (4.0-5.20); Red Cell Distribution Width 14.2 % (11.8-14.3); White Blood Cell 5.2 10^3/uL (4.4-10.8)
[2024-04-27 07:09] LABS: Anion Gap 7 (5-15); Carbon Dioxide 27 mmol/L (20-30); Chloride 106 mmol/L (98-107); Potassium 3.4 mmol/L (3.5-5.1); Sodium 140 mmol/L (136-145)
[2024-04-27 07:11] LABS: Calcium 9.8 mg/dL (8.7-10.4)
[2024-04-27 07:15] LABS: Glucose 108 mg/dL (74-106)
[2024-04-27 07:16] LABS: BUN/Creatinine Ratio 10.7 (10.0-20.0); Blood Urea Nitrogen 9 mg/dL (9-23)
[2024-04-27] MEDS: POTASSIUM EFFERVESENT TAB 25 MEQ PO ONE (10:02)
[2024-04-27] MEDS: SODIUM CHLORIDE 0.9% 1,000 ML IV SCH (10:02)
[2024-04-27] MEDS: APIXABAN 2.5 MG TAB PO SCH (22:07)
[2024-04-28] VITALS (8 sets, daily range): BP systolic 150–169; BP diastolic 65–82; PULSE 72–89; RESP 16–18; TEMP 97.5–98.2; O2SAT 94–98
[2024-04-28 06:59] LABS: Chloride 110 mmol/L (98-107); Potassium 3.8 mmol/L (3.5-5.1); Sodium 142 mmol/L (136-145)
[2024-04-28 07:00] LABS: Anion Gap 4 (5-15); Calcium 9.4 mg/dL (8.7-10.4); Carbon Dioxide 28 mmol/L (20-31)
[2024-04-28 07:05] LABS: BUN/Creatinine Ratio 15.9 (10.0-20.0); Blood Urea Nitrogen 13 mg/dL (9-23); Glucose 106 mg/dL (74-106)
[2024-04-28] MEDS: METOPROLOL TARTRATE 50 MG TAB PO SCH (21:00)
[2024-04-29] VITALS (9 sets, daily range): BP systolic 93–175; BP diastolic 60–98; PULSE 73–82; RESP 18–20; TEMP 97.4–98.7; O2SAT 92–99
[2024-04-29] MEDS: hydrALAZINE HCL 20 MG/ML VL IV PRN (02:12)
[2024-04-29] MEDS: cloNIDine HCL 0.1 MG TAB PO STA (18:32)
== END 2024-04-29 18:37 | DRG 65 ==
LOC: ER 14:39 → TELE 22:43 → TELE-EAST 04-26 21:05 → EAST 04-29 06:58
PROVIDERS: ADMIT Internal Medicine; ATTEND Internal Medicine
DX: I63.9 Cerebral infarction, unspecified (principal); D68.69 Other thrombophilia; I16.1 Hypertensive emergency; N39.0 Urinary tract infection, site not specified; I50.32 Chronic diastolic (congestive) heart failure; E87.6 Hypokalemia; E78.5 Hyperlipidemia, unspecified; R47.1 Dysarthria and anarthria; I25.10 Atherosclerotic heart disease of native coronary artery without angina pectoris; I48.91 Unspecified atrial fibrillation; E03.9 Hypothyroidism, unspecified; Z79.01 Long term (current) use of anticoagulants; Z79.899 Other long term (current) drug therapy; Z90.710 Acquired absence of both cervix and uterus; Z95.1 Presence of aortocoronary bypass graft; I11.0 Hypertensive heart disease with heart failure
CPT/HCPCS: 36415; 70450; 70496; 70551; 71045; 80048; 80053; 80061; 81001; 82306; 82607; 82746; 82962; 83036; 83735; 84439; 84443; 84484; 85025; 85610; 85730; 92507; 92610; 93005; 93306; 93886; 96374; 96375; 97110; 97116; 97163; 97530; G0378; J3480